=== PATIENT | female | born 1995 | race Caucasian/White ===

== ENCOUNTER 2018-05-25 15:26 | Emergency (ER) | payer OTHER ==
[~2018-05-25] VITALS: Ht 167.6 cm; Wt 125.0 kg
[2018-05-25 15:29] VITALS: Ht 167.6 cm; Wt 125.0 kg
--- NOTE | 2018-05-25 15:48 | ERD ---
ER Documentation Chief Complaint Chief Complaint Complains of severe back pain x 1 week HPI 22-year-old female, with a history of back pain, presents the emergency department, complaining of worsening of right thoracic back pain for 1 week. The patient denies any recent trauma. The pain is dull, constant, 7/10. She denies distal weakness, numbness, no tingling. No reports of incontinence. The patient has been taking ibuprofen without improvement of the symptoms. ROS All systems reviewed and are negative except as per history of present illness. Medications Home Meds Active Scripts Ibuprofen* (Motrin*) 400 Mg Tab, 400 MG PO Q8 PRN for PAIN LEVEL 6-10, #12 TAB Prov:CARL CHAN MD 05/25/18 Hydrocodone/Acetaminophen ([place] 5-325 Tablet) 1 Each Tablet, 1 TAB PO BID PRN for PAIN, #10 TAB Prov:CARL CHAN MD 05/25/18 Ciprofloxacin Hcl* (Ciprofloxacin Hcl*) 250 Mg Tablet, 250 MG PO BID, #14 TAB Prov:CARL CHAN MD 05/25/18 Allergies Allergies: Coded Allergies: morphine (Verified Allergy, Intermediate, Rash, swell up, 05/25/18) FmHx Family History: diabetes; No coronary disease Physical Exam Vitals Vital Signs Date Temp Pulse Resp B/P (MAP) Pulse Ox O2 O2 Flow FiO2 Time Delivery Rate 05/25/18 97.5 77 20 133/88 99 15:29 (103) Physical Exam Const: No acute distress Head: Atraumatic Eyes: Normal Conjunctiva ENT: Normal External Ears, Nose and Mouth. Neck: Full range of motion. No meningismus. Resp: Clear to auscultation bilaterally Cardio: Regular rate and rhythm, no murmurs Abd: Soft, mild tenderness to palpation of the flank areas, non distended. Normal bowel sounds Skin: No petechiae or rashes Back: No midline tenderness Ext: No cyanosis, or edema Neur: Awake and alert Psych: Normal Mood and Affect Results 24 hrs Laboratory Tests Test 05/25/18 16:09 05/25/18 16:11 Bedside Urine pH (LAB) 6.5 Bedside Urine Protein (LAB) Negative Bedside Urine Glucose (UA) 0.1% Bedside Urine Ketones (LAB) Trace Bedside Urine Blood 1+ Bedside Urine Nitrite (LAB) Positive Bedside Urine Leukocyte Esterase (L Negative POC Beta HCG, Qualitative NEGATIVE Current Medications Medications Dose Sig/Alec Start Time Status Last (Trade) Ordered Route PRN Stop Time Admin Dose Reason Admin Ketorolac 30 mg ONCE STAT 05/25/18 DC 05/25/18 Tromethamine IM 15:59 16:33 (Toradol) 05/25/18 16:02 DIAGNOSTIC IMAGING REPORT Patient: SHAYAN ROSE : 1995 Age: 22 Sex: F MR #: [id number] DOS: 05/25/18 1559 Ordering MD: CARL CHAN MD Location: [facility] Room/Bed: PROCEDURE: XR Thoracic Spine 3 Views. CLINICAL INDICATION: Back pain. TECHNIQUE: Thoracic spine study including AP, swimmers lateral and lateral views was performed. COMPARISON: No prior studies are available for comparison. FINDINGS: Kyphosis: Minimal scoliosis convex to the right in the mid thoracic spine. Fractures: None. Destructive bony lesions: None. Intervertebral disc heights: Normal. Soft tissues: Unremarkable. Other: None. IMPRESSION: Minimal scoliosis. This could be positional in nature. Otherwise, unremarkable exam. If further characterization is needed CT or MRI could be helpful. If there is high clinical suspicion for traumatic injury, further evaluation with CT should be considered. RPTAT: AA .Nimesh Solis MD, MD Date Time Electronically viewed and signed by .Nimesh Solis MD, MD on 05/25/2018 16:44 Procedures/MDM Differential diagnosis include but not limited to: UTI, colitis, gastroenteritis, kidney stones, irritable bowel syndrome, inflammatory bowel syndrome, malabsorption syndrome, cholelithiasis, food intolerance, medication side effect, pancreatitis, diverticulitis, bowel obstruction. Low suspicion for acute abdomen Physical examination and clinical presentation consistent most likely with urinary tract infection. During the ED course the patient remained stable, no new complaints. The patient received treatment with Toradol IM presenting overall improvement of the symptoms. Results and clinical impression discussed with patient who agrees with management. The patient is stable to be treated outpatient and will be discharged home, some side effects of prescribed medications (headache, rash, nausea, vomiting, diarrhea, drowsiness, habituation, bleeding, hypertension, interactions with other medications) were reviewed. The patient was instructed to follow up with the primary care provider in the next 48h. If symptoms persist, worsen or new symptoms develop, then patient should return to the ED immediately. Instructions explained and given directly by me to the patient with acknowl edgment and demonstrated understanding. Disclaimer: Inadvertent spelling and grammatical errors are likely due to EHR/dictation software use and do not reflect on the overall quality of patient care. Also, please note that the electronic time recorded on this note does not necessarily reflect the actual time of the patient encounter. Departure Diagnosis: Primary Impression: UTI (urinary tract infection) Additional Impression: Back pain Condition: Stable Patient Instructions: Understanding Urinary Tract Infections (UTIs) Additional Instructions: Thank you very much for allowing us to participate in your care. Your health and safety is our top priority at [facility]. Call your primary care doctor TOMORROW for an appointment during the next 2-4 days and bring all the information and medications prescribed. Have prescriptions filled and follow precisely the directions on the label. If the symptoms get worse and your provider is unavailable, return to the Emergency Department immediately. CARL CHAN MD May 25, 2018 15:48
[2018-05-25] MEDS ORDERED: KETOROLAC 30 MG INJ IM STA (15:59)
[2018-05-25] MEDS ORDERED: IBUP-1561 PO (17:22)
[2018-05-25] MEDS ORDERED: HYDR-4011 PO (17:22)
[2018-05-25] MEDS ORDERED: CIPR-193 PO (17:22)
[2018-05-25 17:44] VITALS: BP 128/75; PULSE 78; RESP 18
== END 2018-05-25 17:48 | disposition home or self-care (01) ==
LOC: FTE 15:26
DX: N39.0 Urinary tract infection, site not specified (principal)
CPT/HCPCS: 72072; 81003; 81025; 96372; J1885; Z7502